=== PATIENT | male | born 1960 | race Caucasian/White ===

== ENCOUNTER 2017-06-10 03:53 | Emergency (ER) | payer SELFPAY ==
[2017-06-10 04:02] VITALS: BP 137/81; PULSE 82; RESP 18; TEMP 100.5
[2017-06-10] MEDS ORDERED: HYDROcodone/APAP 5-325MG 1 EACH TAB PO STA (04:23)
--- NOTE | 2017-06-10 04:25 | XR ---
EXAM: XR Chest, 2 Views CLINICAL HISTORY: Reason: Pain TECHNIQUE: Frontal and lateral views of the chest. COMPARISON: No relevant prior studies available. FINDINGS: Lungs: Mild basilar opacities, possible atelectasis. Pleural space: Unremarkable. No pneumothorax. Heart: Unremarkable. Mediastinum: Unremarkable. Bones/joints: Irregularity of the left ninth rib suggestive of fracture. IMPRESSION: 1. Irregularity of the left ninth rib suggestive of fracture.. 2. Mild basilar opacities, possible atelectasis.
--- NOTE | 2017-06-10 04:31 | XR ---
EXAM: XR Right Shoulder Complete, 2 or More Views CLINICAL HISTORY: Reason: Pain TECHNIQUE: Two or more views of the right shoulder. COMPARISON: No relevant prior studies available. FINDINGS: Bones/joints: No acute fracture. No dislocation. Soft tissues: No radiopaque foreign body. IMPRESSION: No acute fracture or dislocation.
--- NOTE | 2017-06-10 04:33 | ED ---
General Adult HPI - General Chief complaint: Fall Stated complaint: Fall Time Seen by Provider: 06/10/17 04:05 Source: patient, RN notes reviewed, old records reviewed Mode of arrival: ambulatory Limitations: no limitations - History of Present Illness Initial comments: This is a 56-year-old male here for evaluation status post fall. Patient is complaining of left-sided pain. Denies drugs or alcohol. Follow is mechanical in nature. Denies his had no loss of consciousness. Denies significant shortness of breath. At this time patient states pain is worse with movement. Worse when he takes a deep breath. No modifying factors or pain at this time. - Related Data Home Medications Medication Instructions Recorded Confirmed Venlafaxine HCl [Effexor] 75 mg PO BID 08/08/16 08/11/16 amLODIPine [Norvasc] 10 mg PO DAILY 08/08/16 08/11/16 Previous Rx's Medication Instructions Recorded HYDROcodone/APAP 7.5-325MG [[place] 1 each PO Q4H PRN #60 tab 08/11/16 7.5] HYDROcodone/APAP 5-325MG [[place] 1 tab PO Q6HR PRN #30 tab 06/10/17 5-325] Allergies Allergy/AdvReac Type Severity Reaction Status Date / Time No Known Allergies Allergy Verified 06/10/17 04:03 Review of Systems ROS Statement: Those systems with pertinent positive or pertinent negative responses have been documented in the HPI. ROS Other: All systems not noted in ROS Statement are negative. Past Medical History Past Medical History: Hypertension Additional Past Medical History / Comment(s): 50% body gonzalez with skin grafts, Has limited R.O.M. in left elbow., Diverticulosis., Hemorrhoids. History of Any Multi-Drug Resistant Organisms: None Reported Additional Past Surgical History / Comment(s): multiple skin grafts, surgery on left elbow., colonoscopy Past Anesthesia/Blood Transfusion Reactions: No Reported Reaction Past Psychological History: Depression Smoking Status: Heavy tobacco smoker Past Alcohol Use History: Daily, Heavy Past Drug Use History: None Reported - Past Family History Mother Family Medical History: No Reported History General Exam Limitations: no limitations General appearance: alert, in no apparent distress Head exam: Present: atraumatic, normocephalic, normal inspection Eye exam: Present: normal appearance, PERRL, EOMI. Absent: scleral icterus, conjunctival injection, periorbital swelling ENT exam: Present: normal exam, mucous membranes moist Neck exam: Present: normal inspection. Absent: tenderness, meningismus, lymphadenopathy Respiratory exam: Present: normal lung sounds bilaterally. Absent: respiratory distress, wheezes, rales, rhonchi, stridor Cardiovascular Exam: Present: regular rate, normal rhythm, normal heart sounds. Absent: systolic murmur, diastolic murmur, rubs, gallop, clicks GI/Abdominal exam: Present: soft, normal bowel sounds. Absent: distended, tenderness, guarding, rebound, rigid Extremities exam: Present: normal inspection, full ROM, normal capillary refill. Absent: tenderness, pedal edema, joint swelling, calf tenderness Back exam: Present: normal inspection Neurological exam: Present: alert, oriented X3, CN II-XII intact Psychiatric exam: Present: normal affect, normal mood Skin exam: Present: warm, dry, intact, normal color. Absent: rash Course Vital Signs 06/10/17 03:59 Temperature 100.5 F H Pulse Rate 82 Respiratory 18 Rate Blood Pressure 137/81 O2 Sat by Pulse 96 Oximetry - Reevaluation(s) Reevaluation #1: Patient is in no acute distress no respiratory distress, pain is controlled Medical Decision Making - Medical Decision Making 56 male the ER for evaluation patient with complaints of rib and shoulder pain, left sided chest pain for evaluation status post fall, positive rib fracture. Patient can be discharged home - Radiology Data Radiology results: report reviewed (Chest x-ray and shoulder x-ray are positive for rib fracture), image reviewed Disposition Clinical Impression: Fall, Left rib fracture Disposition: HOME SELF-CARE Condition: Good Instructions: Rib Fracture (ED), Fall Prevention for Older Adults (ED) Prescriptions: HYDROcodone/APAP 5-325MG [[place] 5-325] 1 tab PO Q6HR PRN #30 tab PRN Reason: Pain Referrals: Angel Gonzalez MD [Primary Care Provider] - 1-2 days
--- NOTE | 2017-06-11 06:36 | CDI ---
Documentation Clarification OP Dear Angel FINCH, DO Please do addendum to ED report for HPI , Physical exam and MDM. Thank you, Shy Polanco Industrial Truck Mechanic If you have any question, Please contact talent acquisition manager at [phone] [facility]
== END 2017-06-10 04:45 | disposition home or self-care (01) ==
LOC: EC 03:53
DX: S22.32XA Fracture of one rib, left side, initial encounter for closed fracture (principal); I10 Essential (primary) hypertension; F32.9 Major depressive disorder, single episode, unspecified; F17.200 Nicotine dependence, unspecified, uncomplicated; Z79.899 Other long term (current) drug therapy; W19.XXXA Unspecified fall, initial encounter
CPT/HCPCS: 71020; 99284

== ENCOUNTER 2019-10-08 13:57 | Emergency (ER) | payer MEDICARE ==
[2019-10-08 14:04] VITALS: TEMP 98.4
[2019-10-08 15:10] LABS: Basophils # (A) 0.2 k/uL (0-0.2); Basophils % (A) 3 %; Eosinophils # (A) 0.1 k/uL (0-0.7); Eosinophils % (A) 1 %; HCT 49.7 % (39.0-53.0); HGB 16.5 gm/dL (13.0-17.5); Lymphocytes # (A) 1.2 k/uL (1.0-4.8); Lymphocytes % (A) 17 %; MCH 32.1 pg (25.0-35.0); MCHC 33.2 g/dL (31.0-37.0); MCV 96.7 fL (80.0-100.0); Mean Platelet Volume 7.3; Monocytes # (A) 0.5 k/uL (0-1.0); Monocytes % (A) 7 %; Neutrophils # (A) 4.9 k/uL (1.3-7.7); Neutrophils % (A) 69 %; Platelet Count 195 k/uL (150-450); RBC 5.14 m/uL (4.30-5.90); RDW 13.6 % (11.5-15.5); WBC 7.1 k/uL (3.8-10.6)
[2019-10-08 15:23] LABS: ALT 66 U/L (4-49); AST 99 U/L (17-59); African American GFR (CKD) >90 (>60 ml/min/1.73 sqM); Albumin 4.5 g/dL (3.5-5.0); Alkaline Phosphatase 100 U/L (38-126); Anion Gap 7 mmol/L; Blood Urea Nitrogen 7 mg/dL (9-20); Calcium 9.8 mg/dL (8.4-10.2); Carbon Dioxide 25 mmol/L (22-30); Chloride 104 mmol/L (98-107); Glucose 87 mg/dL (74-99); Non-African American GFR(CKD) >90 (>60 ml/min/1.73 sqM); Potassium 4.8 mmol/L (3.5-5.1); Sodium 136 mmol/L (137-145); Total Protein 7.6 g/dL (6.3-8.2)
--- NOTE | 2019-10-08 15:26 | ED ---
General Adult HPI - General Chief complaint: Dizziness Stated complaint: dizziness Time Seen by Provider: 10/08/19 14:05 Source: patient, RN notes reviewed, old records reviewed Mode of arrival: ambulatory Limitations: no limitations - History of Present Illness Initial comments: 59-year-old male presents with 4 days of bilateral arm weakness and numbness. Patient states that he woke with these symptoms 4 days prior and they have persisted. Initially were both of his arms in their entirety and a progress to midforearm bilateral. Denies injury. Denies neck pain. Denies headache. Denies vision changes. Denies lower extremity numbness or weakness. Denies chest pain or dyspnea. Denies fever. He states he has chronic right hand numbness and carpal tunnel which she's had for many years and has been treated with steroids. States this is similar to previous carpal tunnel. Left arm is new symptom over the past several days but states it is similar in character and severity to the right arm. - Related Data Home Medications Medication Instructions Recorded Confirmed Venlafaxine HCl [Effexor] 75 mg PO BID 08/08/16 08/11/16 amLODIPine [Norvasc] 10 mg PO DAILY 08/08/16 08/11/16 Previous Rx's Medication Instructions Recorded HYDROcodone/APAP 7.5-325MG [[place] 1 each PO Q4H PRN #60 tab 08/11/16 7.5] HYDROcodone/APAP 5-325MG [[place] 1 tab PO Q6HR PRN #30 tab 06/10/17 5-325] Allergies Allergy/AdvReac Type Severity Reaction Status Date / Time No Known Allergies Allergy Verified 10/08/19 14:03 Review of Systems ROS Statement: Those systems with pertinent positive or pertinent negative responses have been documented in the HPI. ROS Other: All systems not noted in ROS Statement are negative. Past Medical History Past Medical History: Hypertension Additional Past Medical History / Comment(s): 50% body gonzalez with skin grafts, Has limited R.O.M. in left elbow., Diverticulosis., Hemorrhoids. History of Any Multi-Drug Resistant Organisms: None Reported Additional Past Surgical History / Comment(s): multiple skin grafts, surgery on left elbow., colonoscopy Past Anesthesia/Blood Transfusion Reactions: No Reported Reaction Past Psychological History: Depression Smoking Status: Heavy tobacco smoker Past Alcohol Use History: Daily, Heavy Past Drug Use History: None Reported - Past Family History Mother Family Medical History: No Reported History General Exam Limitations: no limitations General appearance: alert, in no apparent distress Head exam: Present: atraumatic, normocephalic Eye exam: Present: normal appearance, PERRL Neck exam: Present: normal inspection. Absent: tenderness, meningismus Respiratory exam: Present: normal lung sounds bilaterally. Absent: respiratory distress, wheezes, rales Cardiovascular Exam: Present: regular rate, normal rhythm GI/Abdominal exam: Present: soft. Absent: distended, tenderness, guarding Extremities exam: Present: normal inspection, normal capillary refill, other. Absent: pedal edema, joint swelling Neurological exam: Present: alert, oriented X3, CN II-XII intact, motor sensory deficit (Decreased education department chair strength bilaterally, NIH is 0) Psychiatric exam: Present: normal affect, normal mood Skin exam: Present: warm, dry, intact. Absent: cyanosis, diaphoretic Course Vital Signs 10/08/19 13:59 Temperature 98.4 F Pulse Rate 43 L Respiratory 20 Rate Blood Pressure 147/88 O2 Sat by Pulse 100 Oximetry EKG Findings - EKG Comments: EKG Findings:: EKG sinus bradycardia with short HI, rate of 59, HI interval 104, QRS duration 100, QTC 453, no ST segment elevation. Medical Decision Making - Medical Decision Making 59-year-old male presenting with bilateral hand and forearm numbness, weakness, mildly reduced education department chair strength bilaterally. No drift, NIH is 0. Stable vitals and otherwise normal neurologic exam. Head CT is performed is negative for intracranial hemorrhage or mass effect. CT cervical spine is negative for fracture subluxation, shows chronic arthritic changes. I prefers patient be admitted for MRI both brain and cervical spine, to rule out CVA as well as evaluation of cervical spine, he declines he prefers outpatient follow-up. He is instructed on anti-inflammatories as well as aspirin daily. He is given orthopedic follow-up as well as neurology follow-up. He will return with worsening or changing symptoms. - Lab Data Result diagrams: 10/08/19 14:30 10/08/19 14:30 Lab Results 10/08/19 10/08/19 10/08/19 Range/Units 14:30 14:30 14:30 WBC 7.1 (3.8-10.6) k/uL RBC 5.14 (4.30-5.90) m/uL Hgb 16.5 (13.0-17.5) gm/dL Hct 49.7 (39.0-53.0) % MCV 96.7 (80.0-100.0) fL MCH 32.1 (25.0-35.0) pg MCHC 33.2 (31.0-37.0) g/dL RDW 13.6 (11.5-15.5) % Plt Count 195 (150-450) k/uL Neutrophils % 69 % Lymphocytes % 17 % Monocytes % 7 % Eosinophils % 1 % Basophils % 3 % Neutrophils # 4.9 (1.3-7.7) k/uL Lymphocytes # 1.2 (1.0-4.8) k/uL Monocytes # 0.5 (0-1.0) k/uL Eosinophils # 0.1 (0-0.7) k/uL Basophils # 0.2 (0-0.2) k/uL PT 9.7 (9.0-12.0) sec INR 0.9 (<1.2) APTT 25.9 (22.0-30.0) sec Sodium 136 L (137-145) mmol/L Potassium 4.8 (3.5-5.1) mmol/L Chloride 104 (98-107) mmol/L Carbon Dioxide 25 (22-30) mmol/L Anion Gap 7 mmol/L BUN 7 L (9-20) mg/dL Creatinine 0.60 L (0.66-1.25) mg/dL Est GFR (CKD-EPI)AfAm >90 (>60 ml/min/1.73 sqM) Est GFR (CKD-EPI)NonAf >90 (>60 ml/min/1.73 sqM) Glucose 87 (74-99) mg/dL Calcium 9.8 (8.4-10.2) mg/dL Total Bilirubin 1.0 (0.2-1.3) mg/dL AST 99 H (17-59) U/L ALT 66 H (4-49) U/L Alkaline Phosphatase 100 (38-126) U/L Troponin I (0.000-0.034) ng/mL Total Protein 7.6 (6.3-8.2) g/dL Albumin 4.5 (3.5-5.0) g/dL 10/08/19 Range/Units 14:30 WBC (3.8-10.6) k/uL RBC (4.30-5.90) m/uL Hgb (13.0-17.5) gm/dL Hct (39.0-53.0) % MCV (80.0-100.0) fL MCH (25.0-35.0) pg MCHC (31.0-37.0) g/dL RDW (11.5-15.5) % Plt Count (150-450) k/uL Neutrophils % % Lymphocytes % % Monocytes % % Eosinophils % % Basophils % % Neutrophils # (1.3-7.7) k/uL Lymphocytes # (1.0-4.8) k/uL Monocytes # (0-1.0) k/uL Eosinophils # (0-0.7) k/uL Basophils # (0-0.2) k/uL PT (9.0-12.0) sec INR (<1.2) APTT (22.0-30.0) sec Sodium (137-145) mmol/L Potassium (3.5-5.1) mmol/L Chloride (98-107) mmol/L Carbon Dioxide (22-30) mmol/L Anion Gap mmol/L BUN (9-20) mg/dL Creatinine (0.66-1.25) mg/dL Est GFR (CKD-EPI)AfAm (>60 ml/min/1.73 sqM) Est GFR (CKD-EPI)NonAf (>60 ml/min/1.73 sqM) Glucose (74-99) mg/dL Calcium (8.4-10.2) mg/dL Total Bilirubin (0.2-1.3) mg/dL AST (17-59) U/L ALT (4-49) U/L Alkaline Phosphatase (38-126) U/L Troponin I <0.012 (0.000-0.034) ng/mL Total Protein (6.3-8.2) g/dL Albumin (3.5-5.0) g/dL Disposition Clinical Impression: Radiculopathy affecting upper extremity Disposition: HOME SELF-CARE Condition: Fair Instructions (If sedation given, give patient instructions): Cervical Radiculop athy (ED) Is patient prescribed a controlled substance at d/c from ED?: No Referrals: Bruinlda Sierra DO [Primary Care Provider] - 1-2 days Mayda Glover MD [Medical Doctor] - 1-2 days Ofe Austin DO [Doctor of Osteopathic Medicine] - 1-2 days Time of Disposition: 16:08
[2019-10-08 15:28] LABS: INR 0.9 (<1.2); Partial Thromboplastin Time 25.9 sec (22.0-30.0); Prothrombin Time 9.7 sec (9.0-12.0)
--- NOTE | 2019-10-08 15:45 | CT ---
EXAMINATION TYPE: CT brain cassandra wo con DATE OF EXAM: 10/08/2019 COMPARISON: HISTORY: Neuro deficit, acute, stroke suspected, bilateral hand numbness CT DLP: 1253.7 mGycm Automated exposure control for dose reduction was used. Multiple axial sections were obtained of the brain without contrast. Multiple axial sections were obt ained from the skull base to T1 vertebra without contrast. FINDINGS: Cervical vertebra have normal alignment. There is mild spurring of the endplates throughout the cervi viral spine. There is no compression fracture. Facet joints are intact. Skull base is intact. There is mild cerebral cortical atrophy. There is no mass effect nor midline shift. There is no sign of intracranial hemorrhage. Calvarium is intact. IMPRESSION: Negative CT scan of the brain. Mild cerebral atrophy. Mild multilevel spondylotic changes in the cervical spine. No fracture.
--- NOTE | 2019-10-08 15:51 | XR ---
EXAMINATION TYPE: XR chest 2V DATE OF EXAM: 10/08/2019 COMPARISON: 06/10/2017 HISTORY: Arm numbness TECHNIQUE: FINDINGS: Heart is normal. Lungs are clear of consolidation. There is no pleural effusion. There are no hilar masses. Bony thorax is intact. IMPRESSION: No active cardiopulmonary disease. No change compared to old exam.
[2019-10-08 16:23] VITALS: BP 131/87; PULSE 67; RESP 18
== END 2019-10-08 16:26 | disposition home or self-care (01) ==
LOC: EC 13:57
DX: M54.10 Radiculopathy, site unspecified (principal); I10 Essential (primary) hypertension; F32.9 Major depressive disorder, single episode, unspecified; F17.200 Nicotine dependence, unspecified, uncomplicated; Z79.899 Other long term (current) drug therapy
CPT/HCPCS: 36415; 70450; 71046; 72125; 80053; 84484; 85025; 85610; 85730; 93005; 99285

== ENCOUNTER → 2020-11-06 | Outpatient (CLI) | payer MEDICARE ==
--- NOTE | 2020-11-06 15:09 | CTL ---
EXAMINATION TYPE: CT Low Dose Lung DATE OF EXAM ORDERED: 11/06/2020 HISTORY: Personal history tobacco use. Lung cancer screening CT DLP: 77.[address] CTDI: 1.9 mGy Automated exposure control for dose reduction was used. SCREENING VISIT: 1 COMPARISON: None TECHNIQUE: Low dose computed tomography scan was performed through the chest at 1 mm thick sections a nd reconstructed images in the coronal plane at [address] DIAGNOSTIC QUALITY: Satisfactory FINDINGS: LUNG NODULES: None. LUNGS: COPD: Severity: Mild Fibrosis: Severity: None Lymph nodes: None Other findings: RIGHT PLEURAL SPACE: Effusion: None Calcification: None Thickening: None Pneumothorax: None LEFT PLEURAL SPACE: Effusion: None Calcification: None Thickening: None Pneumothorax: None HEART: Heart Size: Normal Coronary calcification: Mild Pericardial effusion: None OTHER FINDINGS: Upper abdomen: 3.4 cm peripherally calcified spherical focus in the left splenic hilum may be represe nt aneurysm. Low-attenuation within the liver may be indicative of underlying hepatic steatosis. Bony thorax: There is thoracic spondylosis Supraclavicular region: Negative Other: IMPRESSION: Negative CT LUNG RAD AND CT CHEST RECOMMENDATION: Lung-Rad 1 Negative: Continue annual screening with LDCT in 12 months. S Modifier (other clinically significant findings): Y3, possible splenic artery aneurysm
== END ==
LOC: RADCTMAIN 13:15
PROVIDERS: ATTEND Nurse Practitioner Family
DX: Z12.2 Encounter for screening for malignant neoplasm of respiratory organs (principal); Z87.891 Personal history of nicotine dependence
CPT/HCPCS: 71271

== ENCOUNTER → 2020-12-05 | Outpatient (CLI) | payer MEDICARE ==
--- NOTE | 2020-12-05 16:09 | CT ---
EXAMINATION TYPE: CT angio abdomen pelvis DATE OF EXAM: 12/05/2020 COMPARISON: None INDICATION: aneurysm DLP: 687 mGycm, Automated exposure control for dose reduction was used. CONTRAST: 100 mL of Isovue 370. Study performed without Oral Contrast TECHNIQUE: Axial images were obtained from above the diaphragm to the pubic rami in the axial plane a t 5 mm thick sections. Reconstructed images are reviewed on the computer in the coronal plane. FINDINGS: Limited CT sections are obtained the lung bases. The lung bases are clear. CT ABDOMEN: Liver: Normal Spleen: Spleen appears normal. There may be a 3.4 cm splenic artery aneurysm at the splenic hilum. Pancreas: Normal Adrenal glands: The adrenal glands are normal. Gallbladder: Normal Kidneys: No masses are evident. No hydronephrosis is present. No cysts are present. Delayed images were obtained through the kidneys, which remain unremarkable. Aorta: Vascular calcification is within the aorta. Celiac axis and superior mesenteric artery takeof fs appear normal. Renal artery takeoffs appear normal. Vascular calcifications through the aortic wal ls. There is minimal dilatation is evident. No obstruction is evident. Internal and external iliac vessel s appear patent. Common femoral arteries appear patent. Inferior vena cava: Normal. CT PELVIS: There are diverticular changes within the sigmoid colon. Small bowel loops contain fluid. Correlate f or ileus or gastroenteritis. Study is without oral contrast causing some limitation. Appendix: Normal as visualized. Urinary bladder: Normal. Genitourinary structures: Prostate appears normal Osseous structures: No suspicious lytic or sclerotic lesions. IMPRESSIONS: 1. Vascular calcification within the aorta and iliac vessels. No aneurysmal dilatation is evident. 2. 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
== END | disposition home or self-care (01) ==
LOC: RADCTMAIN 13:39
PROVIDERS: ATTEND Family Medicine
DX: I72.8 Aneurysm of other specified arteries (principal)
CPT/HCPCS: 74174; Q9967

== ENCOUNTER → 2021-06-21 | Outpatient (CLI) | payer MEDICARE ==
--- NOTE | 2021-06-21 11:27 | NM ---
EXAMINATION TYPE: NM stress cardiolite complete DATE OF EXAM: 06/21/2021 COMPARISON: NONE HISTORY: Abnormal EKG TECHNIQUE: After the intravenous administration of 10.02 mCi Tc 99m Sestamibi - Rest images obtained 45 minutes post injection. The patient exercised using a FLACO protocol and 1 minute prior to peak exercise was injected with 26.1 mCi Tc 99m Sestamibi - Stress images obtained 10 minutes post inject ion. FINDINGS: Targeted heart rate was achieved during performance of the study. Review of stress and rest SPECT araseli ges demonstrates no distinct perfusion abnormality. Gated analysis shows normal wall motion with an estimated left ventricular ejection fraction of 62 %. IMPRESSION: No scintigraphic evidence for reversible ischemia
--- NOTE | 2021-06-21 11:36 | P.STRESS ---
- Stress Test Note Stress Test Results/Findings: Exam Performed: NM stress cardiolite complete Exam Date: 06/21/21 Reason for Exam: ABNORMAL EKG Height: 5 ft 10 in Weight: 65.5 kg Protocol: CARDIOLITE FLACO Stage: 3 Duration of Exercise: 8:42 Resting Heart Rate: 84 Resting Blood Pressure: 111/82 Maximum Achieved Heart Rate: 138 Maximum Achieved Blood Pressure: 205/120 85% PMHR: 137 100% PMHR: 161 METS: 10.2 Technologist Comment: Stress Test Results/Findings: Patient exercised on a Flaco protocol for 8 minutes 42 seconds Baseline twelve-lead EKG shows sinus rhythm normal HI narrow QRS normal ST segments No ECG evidence for ischemia Hypertensive response Peak blood pressure 205/120 No arrhythmias Impression average exercise capacity, hypertensive response to exercise No ECG evidence for ischemia
== END | disposition home or self-care (01) ==
LOC: RADNMMAIN 07:54
PROVIDERS: ATTEND Family Medicine
DX: R94.31 Abnormal electrocardiogram [ECG] [EKG] (principal)
CPT/HCPCS: 93017; 78452; A9500

== ENCOUNTER 2021-08-17 12:57 | Emergency (ER) | payer MEDICARE ==
[2021-08-17 13:06] VITALS: TEMP 97.4
--- NOTE | 2021-08-17 13:32 | XR ---
EXAMINATION TYPE: XR chest 2V DATE OF EXAM: 08/17/2021 COMPARISON: 10/08/2019 HISTORY: Cough TECHNIQUE: Frontal and lateral views of the chest are obtained. FINDINGS: There is no focal air space opacity, pleural effusion, or pneumothorax seen. The cardiac silhouette size is within normal limits. The osseous structures are intact. The interstitium appears prominent as it did on the prior exam is likely chronic in nature. IMPRESSION: Probable mild chronic interstitial changes without evidence of acute cardiopulmonary dis ease.
[2021-08-17] MEDS ORDERED: BAMLANIVIMAB (EUA) 700 MG, ETESEVIMAB (EUA) 1,400 MG in SODIUM CHLORIDE 0.9% 50 ML IVPB ONE (14:30)
--- NOTE | 2021-08-17 14:49 | ED ---
URI HPI - General Chief Complaint: Upper Respiratory Infection Stated Complaint: Covid+ Time Seen by Provider: 08/17/21 13:14 Source: patient, RN notes reviewed Mode of arrival: ambulatory Limitations: no limitations - History of Present Illness Initial Comments: This a 61-year-old male presents emergency Department chief complaint of COVID- 19. Patient states that he tested positive days ago. Patient states symptoms started that day the day before. Patient states that he's had a fever, mild shortness breath without cough and congestion body. He states his leg is positive. Patient has not received monoclonal antibodies he states she's been waiting for his infusion. Patient has no GI symptoms normal headache no neck pain or neck stiffness. - Related Data Home Medications Medication Instructions Recorded Confirmed amLODIPine [Norvasc] 10 mg PO DAILY 08/08/16 08/11/16 Atorvastatin [Lipitor] 20 mg PO DAILY 08/17/21 08/17/21 Escitalopram [Lexapro] 20 mg PO DAILY 08/17/21 08/17/21 Gabapentin [Neurontin] 300 mg PO TID 08/17/21 08/17/21 Allergies Allergy/AdvReac Type Severity Reaction Status Date / Time No Known Allergies Allergy Verified 08/17/21 14:15 Review of Systems ROS Statement: Those systems with pertinent positive or pertinent negative responses have been documented in the HPI. ROS Other: All systems not noted in ROS Statement are negative. Past Medical History Past Medical History: Hypertension Additional Past Medical History / Comment(s): 50% body gonzalez with skin grafts, Has limited R.O.M. in left elbow., Diverticulosis., Hemorrhoids. History of Any Multi-Drug Resistant Organisms: None Reported Additional Past Surgical History / Comment(s): multiple skin grafts, surgery on left elbow., colonoscopy Past Anesthesia/Blood Transfusion Reactions: No Reported Reaction Past Psychological History: Depression Smoking Status: Current every day smoker Past Alcohol Use History: Daily, Heavy Past Drug Use History: None Reported - Past Family History Mother Family Medical History: No Reported History General Exam General appearance: alert, in no apparent distress Head exam: Present: atraumatic, normocephalic, normal inspection Eye exam: Present: normal appearance, PERRL, EOMI. Absent: scleral icterus, conjunctival injection, periorbital swelling ENT exam: Present: normal exam, normal oropharynx, mucous membranes moist Neck exam: Present: normal inspection, full ROM. Absent: tenderness, meningismus, lymphadenopathy Respiratory exam: Present: normal lung sounds bilaterally. Absent: respiratory distress, wheezes, rales, rhonchi, stridor Cardiovascular Exam: Present: regular rate, normal rhythm, normal heart sounds. Absent: systolic murmur, diastolic murmur, rubs, gallop, clicks Course Vital Signs 08/17/21 08/17/21 13:02 14:05 Temperature 97.4 F L Pulse Rate 75 Respiratory 18 20 Rate Blood Pressure 130/89 O2 Sat by Pulse 96 Oximetry Medical Decision Making - Medical Decision Making Patient will receive monoclonal antibodies as he is positive for COVID-19 vitals are stable be discharged in stable condition return parameters were discussed. Patient agrees to plan. - Lab Data Lab Results 08/17/21 Range/Units 13:08 Coronavirus (PCR) Detected A (Not Detectd) Disposition Clinical Impression: COVID-19 Disposition: HOME SELF-CARE Condition: Stable Instructions (If sedation given, give patient instructions): Coronavirus Disease 2019 (COVID-19) Additional Instructions: Please return to the Emergency Department if symptoms worsen or any other concerns. Is patient prescribed a controlled substance at d/c from ED?: No Referrals: Brunilda Sierra DO [Primary Care Provider] - 1-2 days Time of Disposition: 14:49
[2021-08-17] MEDS ORDERED: SODIUM CHLORIDE 0.9% 50 ML IVPB ONE (15:00)
[2021-08-17 16:08] VITALS: BP 127/86; PULSE 99; RESP 17
== END 2021-08-17 16:07 | disposition home or self-care (01) ==
LOC: EC 12:57
DX: U07.1 COVID-19 (principal); I10 Essential (primary) hypertension; F32.A Depression, unspecified; F17.200 Nicotine dependence, unspecified, uncomplicated
CPT/HCPCS: 99285; M0245; 71046; 87635

== ENCOUNTER → 2021-10-04 | Outpatient (CLI) | payer MEDICARE ==
[2021-10-04 15:22] LABS: Basophils # (A) 0.11 X 10*3/uL (0.00-0.10); Basophils % (A) 1.6 %; Eosinophils # (A) 0.25 X 10*3/uL (0.04-0.35); Eosinophils % (A) 3.7 %; HCT 43.1 % (39.6-50.0); HGB 14.3 g/dL (13.0-17.0); Lymphocytes # (A) 1.61 X 10*3/uL (0.90-5.00); Lymphocytes % (A) 23.9 %; MCHC 33.2 g/dL (32.0-37.0); MCV 93.5 fL (80.0-97.0); Mean Platelet Volume 8.7 fL (9.5-12.2); Monocytes # (A) 0.74 X 10*3/uL (0.20-1.00); Neutrophils # (A) 4.01 X 10*3/uL (1.80-7.70); Neutrophils % (A) 59.5 %; Platelet Count 292 X 10*3/uL (140-440); RBC 4.61 X 10*6/uL (4.40-5.60); RDW 13.7 % (11.5-14.5); WBC 6.74 X 10*3/uL (4.50-10.00)
[2021-10-04 16:00] LABS: African American GFR (CKD) 126.7 (60.0-200.0); Anion Gap 11.3 mmol/L (10.00-18.00); Blood Urea Nitrogen 6.3 mg/dL (9.0-27.0); Carbon Dioxide 22.7 mmol/L (20.0-27.5); Non-African American GFR(CKD) 109.3 (60.0-200.0); Potassium 4.7 mmol/L (3.5-5.5)
== END | disposition home or self-care (01) ==
LOC: LABPAT 09:58
PROVIDERS: ATTEND Surgery
DX: Z01.812 Encounter for preprocedural laboratory examination (principal); I72.8 Aneurysm of other specified arteries
CPT/HCPCS: 36415; 80051; 82565; 84520; 85025

== ENCOUNTER 2021-10-08 07:14 | Day surgery (SDC) | payer MEDICARE ==
[2021-10-04 09:18] VITALS: BMI 20.3
[~2021-10-08 07:14] MED LIST: SODIUM CHLORIDE 0.9% 1,000 ML in EMPTY BAG 1 BAG IV ONE
[2021-10-08] MEDS ORDERED: SODIUM CHLORIDE 0.9% 1,000 ML IV ONE (07:34)
[2021-10-08] MEDS ORDERED: ASPIRIN 325 MG TAB ONE (07:35)
[2021-10-08 07:45] VITALS: RESP 16; TEMP 98.1
[2021-10-08] MEDS ORDERED: LIDOCAINE 1% INJ 10MG/ML (20 ML MDV) ONE (08:13)
[2021-10-08] MEDS ORDERED: LIDOCAINE 1% INJ 10MG/ML (20 ML MDV) SQ ONE (08:40)
[2021-10-08] MEDS ORDERED: fentaNYL (PF) 50 MCG/ML 2 ML AMP ONE (08:42)
[2021-10-08] MEDS ORDERED: MIDAZOLAM 2 MG/2 ML VIAL IV ONE (08:47)
[2021-10-08] MEDS ORDERED: fentaNYL (PF) 50 MCG/ML 2 ML AMP IV ONE (08:48)
[2021-10-08] MEDS ORDERED: IOPAMIDOL-370 100ML BTL INJ ONE (09:07)
--- NOTE | 2021-10-08 10:00 | IR ---
EXAMINATION TYPE: IR angio visceral DATE OF EXAM: 10/08/2021 COMPARISON: NONE HISTORY: Fluoroscopy time. Fluoroscopy was provided to the referring clinician.
--- NOTE | 2021-10-08 10:41 | P.OP ---
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 After review of the CT scan we discussed options including follow up CTA or MRA in 6 months vs. catheter directed angiogram. He wanted to have the angiogram so we would know definitely if any filling. Operative Findings: Aorta: Patent without significant calcification or stenosis. No evidence of aneurysmal disease. Celiac: Celiac trunk without evidence of stenosis. Hepatic artery and splenic artery are widely patent without any significant stenosis. The neck artery at the hilum demonstrates a circular calcified area without any filling consistent with possible thrombosed aneurysm. Renal: Bilateral renal arteries demonstrate stenosis roughly 60% on the right and mild on the left. SMA: Widely patent without any significant calcific disease or stenosis. Iliac: Bilateral common iliac arteries are patent there is some area of mild stenosis on the right external iliac artery just after the takeoff of the internal iliac artery. Bilateral iliac arteries are widely patent. Description of Procedure: After written and informed consent was obtained the patient all risks, benefits and complications were described patient is brought to the [facility] and laid in a supine position. The area of the groins were prepped and draped in usual sterile fashion. Timeout was performed in the usual fashion. Utilizing ultrasound the right common femoral artery was located and shown to have some calcification otherwise patent. Utilizing Seldinger technique and a multipurpose needle and a 6-Bengali sheath was placed. Guidewire was then placed with some difficulty across the iliac tortuosity and therefore a retrograde angiogram was obtained of the iliofemoral system. Guidewire was ultimately placed into the aorta followed by pigtail catheter and aortogram was obtained. On aortogram he could see a calcified area of the spleen that appeared to be the aneurysm without noticeable filling. Multiple angles were obtained once again showing the same aneurysm without filling. A Cobra catheter was then placed and the celiac artery was accessed selective angiogram was then performed of the hepatic artery as well as the splenic artery. Both arteries were widely patent without any evidence of disease. The splenic artery angiogram did not show any filling into the questionable area at the splenic hilum. All guidewires and catheters were then removed. A Vascade closure device was then placed and pressure held for hemostasis. The patient tolerated the procedure well was sent to recovery. Disposition: No evidence of filling of a splenic artery aneurysm. The area appears to be a thrombosed aneurysm but mass cannot be completely ruled out. I would recommend follow up MRI Plan - Discharge Summary Discharge Rx Participant: Yes New Discharge Prescriptions: No Action amLODIPine [Norvasc] 10 mg PO DAILY Discharge Medication List amLODIPine [Norvasc] 10 mg PO DAILY 08/08/16 [History] Follow up Appointment(s)/Referral(s): Blanco Apple DO [STAFF PHYSICIAN] - 10/22/21 3:00 pm Discharge Disposition: HOME SELF-CARE
[2021-10-08 13:42] VITALS: BP 129/69; PULSE 74
== END 2021-10-08 14:33 | disposition home or self-care (01) ==
LOC: CATHCVL 07:14
PROVIDERS: ATTEND Surgery
DX: I72.8 Aneurysm of other specified arteries (principal); F17.200 Nicotine dependence, unspecified, uncomplicated; F10.20 Alcohol dependence, uncomplicated; Z20.822 Contact with and (suspected) exposure to COVID-19; F41.8 Other specified anxiety disorders; K76.0 Fatty (change of) liver, not elsewhere classified; I10 Essential (primary) hypertension; G47.00 Insomnia, unspecified; G62.9 Polyneuropathy, unspecified; D69.6 Thrombocytopenia, unspecified
CPT/HCPCS: 36246; 36248; 75774; 75726; 87635; C1894 ×3; C1769 ×3; C1760; J2250; J2001; J3010; Q9967